=== PATIENT | female | born 1965 | race African-American/Black ===

== ENCOUNTER 2016-06-07 11:05 | Inpatient (IN) | payer MEDICARE, OTHER ==
[~2016-06-07] VITALS: Ht 167.6 cm; Wt 81.0 kg
[2016-06-07] VITALS (7 sets, daily range): BP systolic 106–198; RESP 16–20; TEMP 98–98.6; Ht 167.6 cm; Wt 81.0 kg
[2016-06-07] MEDS ORDERED: DUONEB INH ONE (11:32)
[2016-06-07] MEDS ORDERED: NITROGLYCERIN SL 0.4 MG TAB SL ONE (13:30)
[2016-06-07] MEDS ORDERED: NITROGLYCERIN 2% OINT 1 INCH PKT TOPICAL ONE (13:30)
[2016-06-07] MEDS ORDERED: GUAIFEN/DM 10 ML UDC PO PRN (14:15)
[2016-06-07] MEDS ORDERED: FLEET ENEMA 132 ML BTL RECTAL PRN (14:15)
[2016-06-07] MEDS ORDERED: GLUCAGON 1 MG VIAL IM PRN (14:15)
[2016-06-07] MEDS ORDERED: BISACODYL EC 5 MG TAB PO PRN (14:15)
[2016-06-07] MEDS ORDERED: ONDANSETRON 4 MG VIAL IV PRN (14:15)
[2016-06-07] MEDS ORDERED: LOPERAMIDE 2 MG CAPSULE PO PRN (14:15)
[2016-06-07] MEDS ORDERED: BISACODYL 10 MG SUPP RECTAL PRN (14:15)
[2016-06-07] MEDS ORDERED: ACETAMINOPHEN 325 MG TAB PO PRN (14:15)
[2016-06-07] MEDS ORDERED: DEXTROSE 50% SYRINGE 50 ML IV PRN (14:15)
[2016-06-07] MEDS ORDERED: NICOTINE 21 MG/24 HR TRANSDERM PRN (14:15)
[2016-06-07] MEDS ORDERED: SALINE FLUSH 10 ML FLUSH PRN (14:15)
[2016-06-07] MEDS ORDERED: ALU/MAG/SIM 30 ML UDC PO PRN (14:15)
[2016-06-07] MEDS ORDERED: MAG HYDROX 30 ML UDC PO PRN (14:15)
[2016-06-07] MEDS ORDERED: Furosemide 100 MG/10 ML VIAL IV ONE (14:35)
[2016-06-07] MEDS ORDERED: SODIUM CHLORIDE 0.9% 1,000 ML IV SCH (15:10)
[2016-06-07] MEDS ORDERED: hePARIN 1,000 UNITS/ML (PORCINE) 10 ML IV PRN (15:10)
[2016-06-07] MEDS: NITROGLYCERIN 2% OINT 1 INCH PKT TOPICAL SCH ×2 (18:00→23:38)
[2016-06-07] MEDS: DUONEB INH SCH ×2 (19:00→23:48)
[2016-06-07] MEDS ORDERED: Atorvastatin 40 MG TAB PO SCH (21:00)
[2016-06-07] MEDS ORDERED: MISSING DOSE XX ONE (21:45)
[2016-06-07] MEDS: PREGABALIN 75 MG CAP PO SCH (21:47)
[2016-06-07] MEDS: CALCIUM ACETATE 667MG CAP PO SCH (21:47)
[2016-06-07] MEDS: FAMOTIDINE 20 MG TAB PO SCH (21:47)
[2016-06-07] MEDS: APIXABAN 5 MG TAB PO SCH (21:48)
[2016-06-07] MEDS: LEVETIRACETAM 500 MG TAB PO SCH (21:48)
[2016-06-07] MEDS: SALINE FLUSH 10 ML FLUSH SCH (21:49)
[2016-06-08] VITALS (7 sets, daily range): BP systolic 133–180; RESP 16–18; TEMP 97.8–98.6
[2016-06-08] MEDS: DUONEB INH SCH ×4 (02:11→14:39)
[2016-06-08] MEDS: NITROGLYCERIN 2% OINT 1 INCH PKT TOPICAL SCH ×2 (05:57→11:28)
[2016-06-08] MEDS ORDERED: SODIUM CHLORIDE 0.9% FLUSH BAG 500 ML IV SCH (06:00)
[2016-06-08] MEDS: SALINE FLUSH 10 ML FLUSH SCH (07:56)
[2016-06-08] MEDS: APIXABAN 5 MG TAB PO SCH (07:57)
[2016-06-08] MEDS: PREGABALIN 75 MG CAP PO SCH (07:58)
[2016-06-08] MEDS: CALCIUM ACETATE 667MG CAP PO SCH ×2 (07:58→11:27)
[2016-06-08] MEDS: FAMOTIDINE 20 MG TAB PO SCH (07:58)
[2016-06-08] MEDS: LEVETIRACETAM 500 MG TAB PO SCH (07:58)
[2016-06-08] MEDS ORDERED: VALACYCLOVIR 500 MG TAB PO SCH (09:00)
[2016-06-08] MEDS ORDERED: CETIRIZINE 10 MG TAB PO SCH (09:00)
[2016-06-08] MEDS ORDERED: METOPROLOL XL 50 MG TAB PO SCH (09:00)
[2016-06-08] MEDS ORDERED: CYANOCOBALAMIN/FA/PYRIDOX TAB PO SCH (09:00)
[2016-06-08] MEDS ORDERED: LISINOPRIL 10 MG TAB PO SCH (09:00)
[2016-06-08] MEDS ORDERED: ASPIRIN EC 81 MG TAB PO SCH (09:00)
[2016-06-08] MEDS ORDERED: amLODIPine 5 MG TAB PO SCH (09:00)
[2016-06-08] MEDS ORDERED: MONTELUKAST 10 MG TAB PO SCH (09:00)
[2016-06-08] MEDS ORDERED: LEVEMIR INSULIN SUBQ SCH (09:00)
[2016-06-13] MEDS ORDERED: ERGOCALCIFEROL 50,000 UNITS (1.25 MG) CAP PO SCH (09:00)
== END 2016-06-08 16:45 | disposition home or self-care (01) | DRG 291 ==
LOC: ENRESERVDT → ENRESERVTM → ER 11:05 → EMR 14:59 → ENPENDDIS 14:59 → 3NT 20:38
PROVIDERS: ADMIT Internal Medicine; ATTEND Internal Medicine
PROC: 5A1D00Z (ICD-10-PCS; principal; 2016-06-07)
CPT/HCPCS: 36415; 36600; 71010; 71020; 80048; 80053; 82553; 82803; 82947; 83880; 84484; 85025; 93005; 94640; 94799; 96374; 99223; 99239

== ENCOUNTER 2016-06-12 08:24 | Emergency (ER) | payer MEDICARE, OTHER ==
[2016-06-12] MEDS ORDERED: DEXTROSE 50% 50 ML ONE ×2 (08:49→09:05)
[2016-06-12] MEDS ORDERED: SODIUM CHLORIDE 0.9% 500 ML IV ONE (09:05)
== END 2016-06-12 11:55 | disposition home or self-care (01) ==
LOC: ER 08:55
DX: E16.2 Hypoglycemia, unspecified (principal); E11.9 Type 2 diabetes mellitus without complications; Z79.4 Long term (current) use of insulin; Z99.2 Dependence on renal dialysis; N18.6 End stage renal disease; I50.9 Heart failure, unspecified; Z79.82 Long term (current) use of aspirin; Z79.899 Other long term (current) drug therapy; F17.210 Nicotine dependence, cigarettes, uncomplicated
CPT/HCPCS: 36415; 71010; 80053; 81001; 82550; 82553; 82947; 83605; 83735; 83880; 84484; 85025; 85610; 85730; 93005; 96361; 96374; 99285; J7040